=== PATIENT | male | born 1990 | race Caucasian/White ===

== ENCOUNTER 2018-05-03 10:31 | Emergency (ER) | payer OTHER ==
--- NOTE | 2018-05-03 11:10 | ED Physician Documentation ---
PD HPI HEADACHE - Stated complaint Stated Complaint: HEADACHE - Chief complaint Chief Complaint: Neuro - History obtained from History obtained from: Patient - History of Present Illness Timing - onset: How many weeks ago (6) Timing - onset during: Light activity Timing - details: Gradual onset, Still present (he has had focal pain behind left eye for 6 weeks to some degree, has not gone away. Mild blurred vision at times. No scotomata.), Waxing and waning Worst headache ever?: No: Worst headache ever? Location: Front (behind left eye), Left Quality: Throbbing, Aching Associated symptoms: Other (no nasal drainage). No: Fever, Nausea, Vomiting Worsened by: Light. No: Noise Contributing factors: No: Recent illness, Trauma Similar symptoms before: Has not had sx before Recently seen: Not recently seen Review of Systems Constitutional: denies: Fever, Chills, Myalgias Nose: denies: Rhinorrhea / runny nose, Congestion Throat: denies: Sore throat Respiratory: denies: Cough Skin: denies: Rash, Lesions PD PAST MEDICAL HISTORY - Past Medical History Cardiovascular: None Respiratory: None Neuro: None Endocrine/Autoimmune: None HEENT: None - Present Medications Home Medications: Ambulatory Orders Medication Instructions Recorded Confirmed Dexamethasone [Decadron] 4 mg PO DAILY #8 tablet 05/03/18 Naproxen 375 mg PO BID #20 tablet 05/03/18 Ondansetron HCl [Zofran] 4 mg PO Q6H PRN #20 tablet 05/03/18 Sumatriptan Succinate [Imitrex] 100 mg PO ONCE PRN #9 tablet 05/03/18 Tramadol HCl 50 mg PO Q6H PRN #20 tablet 05/03/18 PD ED PE NORMAL - Vitals Vital signs reviewed: Yes - General General: Alert and oriented X 3, No acute distress, Well developed/nourished - HEENT HEENT: PERRL, EOMI, Other (no sinus tenderness to percussion) - Neck Neck: Supple, no meningeal sign, No adenopathy - Cardiac Cardiac: RRR, No murmur - Respiratory Respiratory: Clear bilaterally - Derm Derm: Normal color, Warm and dry, No rash - Neuro Neuro: Alert and oriented X 3, 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 sinus okay as well. ) PD MEDICAL DECISION MAKING - ED course Complexity details: considered differential (given the long duration of focal pain, got CT and it appeared okay. ), d/w patient - Sepsis Event Vital Signs: Oxygen O2 Source Room air Departure - Departure Disposition: 01 Home, Self Care Clinical Impression: Frontal headache Migraines Qualifiers: Migraine type: unspecified Status migrainosus presence: with status migrainosus Intractability: not intractable Qualified Code(s): G43.901 - Migraine, unspecified, not intractable, with status migrainosus Condition: Stable Record reviewed to determine appropriate education?: Yes Instructions: ED Cephalgia Unspecified, ED Headache Migraine Follow-Up: MELISSA STARKEY MD [Primary Care Provider] - Prescriptions: Dexamethasone [Decadron] 4 mg PO DAILY #8 tablet Naproxen 375 mg PO BID #20 tablet Ondansetron HCl [Zofran] 4 mg PO Q6H PRN #20 tablet PRN Reason: Nausea / Vomiting Sumatriptan Succinate [Imitrex] 100 mg PO ONCE PRN #9 tablet PRN Reason: Headache Tramadol HCl 50 mg PO Q6H PRN #20 tablet PRN Reason: Pain Comments: Your head CT is normal without any signs of tumors bleeding or swelling. The sinuses appear normal to. So this may be still some sinus pressure in the area. Also consider MEHRAN status migraine even though the duration seems to be a bit long. This would get treated with steroids and anti-inflammatories and add Tylenol and/or tramadol if needed for pain. For subsequent migraine episodes you can use an Excedrin sinus or naproxen type medicine combined with ondansetron for nausea and Imitrex for the migraine and see if those help. Follow-up with your primary care if not improved over the next several days. Discharge Date/Time: 05/03/18 14:47
[2018-05-03] MEDS ORDERED: DEXAMETHASONE 10 MG/ML VIAL PO STA (11:31)
[2018-05-03] MEDS ORDERED: IBUPROFEN 600 MG TABLET PO STA (11:31)
[2018-05-03] MEDS ORDERED: CETIRIZINE 10 MG TABLET PO STA (11:31)
--- NOTE | 2018-05-03 12:57 | CT Report ---
Procedure Date: 05/03/2018 Accession Number: [id number] / [id number] Procedure: CT - Head W/O CPT Code: FULL RESULT: EXAM: CT HEAD EXAM DATE: 05/03/2018 12:13 PM. CLINICAL HISTORY: Left frontal headache for 6 weeks. COMPARISON: None. TECHNIQUE: Multiaxial CT images were obtained from the foramen magnum to the vertex. Reformats: Coronal. IV contrast: None. In accordance with CT protocol optimization, one or more of the following dose reduction techniques were utilized for this exam: automated exposure control, adjustment of mA and/or KV based on patient size, or use of iterative reconstructive technique. FINDINGS: Parenchyma: No intraparenchymal hemorrhage. No evidence of mass, midline shift, or CT findings of infarction. Sky-white differentiation is distinct. Extraaxial Spaces: Normal for age. No subdural or epidural collections identified. Ventricles: Normal in size and position. Sinuses and Orbits: Imaged paranasal sinuses, orbits, and mastoids show no significant abnormality. Bones: No evidence of fracture or calvarial defect. Other: None. IMPRESSION: 1. No acute intracranial abnormality is identified. RADIA
[2018-05-03 14:48] VITALS: BP 127/77
== END 2018-05-03 14:47 | disposition home or self-care (01) ==
LOC: ED 10:31
DX: G43.909 Migraine, unspecified, not intractable, without status migrainosus (principal)
CPT/HCPCS: 70450; 99283; A9270

== ENCOUNTER 2019-01-29 14:23 | Emergency (ER) | payer OTHER ==
[2019-01-29 14:30] VITALS: BP 146/85
[2019-01-29] MEDS ORDERED: KETOROLAC 60 MG/2 ML VIAL IM STA (14:50)
[2019-01-29] MEDS ORDERED: CETIRIZINE 10 MG TABLET PO STA (14:50)
[2019-01-29] MEDS ORDERED: PSEUDOEPHEDRINE 30 MG TABLET PO SCH (15:00)
--- NOTE | 2019-01-29 15:27 | ED Physician Documentation ---
PD HPI HEADACHE - Stated complaint Stated Complaint: LT SIDE FACE NUMBNESS - Chief complaint Chief Complaint: General - History obtained from History obtained from: Patient, Family - History of Present Illness Timing - onset: Last night Timing - onset during: Rest Timing - duration: Days (1) Timing - details: Gradual onset, Waxing and waning Pain level max: 8 Pain level now: 8 Worst headache ever?: No: Worst headache ever? Location: Front, Left Quality: Throbbing, Aching. No: Thunderclap Associated symptoms: Fever (States had sweats last night). No: Nausea, Vomiting, Weakness, Numbness, Syncope, Seizure, Eye pain, Vision changes Improved by: Other (Has not tried anything) Worsened by: Moving, Other (Palpation) Contributing factors: No: Anticoagulated, Possible carbon monoxide, Hypertension, Recent illness, Trauma Similar symptoms before: Diagnosis (Headache) Recently seen: Not recently seen - Additional information Additional information: Initially the patient stated that this started last night. Upon further questioning, he states that this is actually been ongoing for a year and gets frequent headaches. Has seen his primary care provider but states that no testing has been done. Did have a normal head CT here last year. Review of Systems Ten Systems: 10 systems reviewed and negative Constitutional: denies: Fever, Chills Nose: reports: Congestion, Sinus pressure / pain Throat: denies: Sore throat Cardiac: denies: Chest pain / pressure Respiratory: denies: Cough, Wheezing GI: denies: Abdominal Pain, Nausea, Vomiting, Diarrhea Skin: denies: Rash Musculoskeletal: denies: Neck pain, Back pain Neurologic: denies: Focal weakness, Numbness, Confused, Altered mental status, LOC PD PAST MEDICAL HISTORY - Past Medical History Cardiovascular: None Respiratory: None Neuro: None Endocrine/Autoimmune: None HEENT: None - Past Surgical History Past Surgical History: No - Present Medications Home Medications: Ambulatory Orders Medication Instructions Recorded Confirmed Naproxen 375 mg PO BID #20 tablet 05/03/18 01/29/19 Ondansetron HCl [Zofran] 4 mg PO Q6H PRN #20 tablet 05/03/18 01/29/19 Sumatriptan Succinate [Imitrex] 100 mg PO ONCE PRN #9 tablet 05/03/18 01/29/19 Butalb/Acetaminophen/Caffeine 1 cap PO Q8H PRN #20 capsule 01/29/19 [Fioricet 50-300-40 mg Capsule] - Allergies Allergies/Adverse Reactions: Allergies Allergy/AdvReac Type Severity Reaction Status Date / Time No Known Drug Allergies Allergy Verified 01/29/19 14:30 - Social History Does the pt smoke?: No Smoking Status: Never smoker Does the pt drink ETOH?: Yes Does the pt have substance abuse?: No - Immunizations Immunizations are current?: Yes - POLST Patient has POLST: No PD ED PE NORMAL - Vitals Vital signs reviewed: Yes - General General: Alert and oriented X 3, No acute distress, Well developed/nourished - HEENT HEENT: Atraumatic, PERRL, EOMI, Ears normal, Moist mucous membranes, Pharynx benign, Other (Tender to palpation over the left frontal sinus) - Neck Neck: Supple, no meningeal sign, No bony TTP - Cardiac Cardiac: RRR, No murmur, Strong equal pulses - Respiratory Respiratory: No respiratory distress, Clear bilaterally - Abdomen Abdomen: Soft, Non tender, Non distended - Derm Derm: Warm and dry, No rash - Extremities Extremities: No edema, No calf tenderness / cord - Neuro Neuro: Alert and oriented X 3, 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 Normal cerebellar test) Eye Opening: Spontaneous Motor: Obeys Commands Verbal: Oriented GCS Score: 15 - Psych Psych: Normal mood, Normal affect - Free text exam Free text exam: NIH stroke scale of 0 Results - Vitals Vitals: Vital Signs - 24 hr 01/29/19 14:25 Temperature 36.4 C L Heart Rate 70 Respiratory 16 Rate Blood Pressure 146/85 H O2 Saturation 100 Oxygen O2 Source Room air - Rads (name of study) Head CT Radiology: Prelim report reviewed, EMP read contemporaneously, See rad report (normal) PD MEDICAL DECISION MAKING - ED course Complexity details: reviewed old records, reviewed results, re-evaluated patient, considered differential, d/w patient, d/w family ED course: 29-year-old male presents to the emergency department with a left frontal headache. Has been having ongoing headaches for the past year. No acute findings on head CT. Will trial on Fioricet at home. Recommend he follow-up with his PCP for further evaluation including potential MRI and/or neurology referral. Patient counseled regarding signs and symptoms for which I believe and urgent re-evaluation would be necessary. Patient with good understanding of and agreement to plan and is comfortable going home at this time This document was made in part using voice recognition software. While efforts are made to proofread this document, sound alike and grammatical errors may occur. Departure - Departure Disposition: Home, Self Care Clinical Impression: Headache Qualifiers: Headache type: unspecified Headache chronicity pattern: chronic headache Intractability: not intractable Qualified Code(s): R51 - Headache Condition: Good Instructions: ED Cephalgia Unspecified Follow-Up: MELISSA STARKEY MD [Primary Care Provider] - Within 1 week Prescriptions: Butalb/Acetaminophen/Caffeine [Fioricet 50-300-40 mg Capsule] 1 cap PO Q8H PRN #20 capsule PRN Reason: Headache Comments: As you have had chronic ongoing headaches over the past year. You should follow-up with your doctor for further care. They may want to perform an MRI and/or refer you to a headache specialist. Discharge Date/Time: 01/29/19 16:37
--- NOTE | 2019-01-29 16:17 | CT Report ---
Reason: L frontal headache x 1 year Procedure Date: 01/29/2019 Accession Number: [id number] / [id number] Procedure: CT - HEAD WO CPT Code: FULL RESULT: EXAM: CT HEAD EXAM DATE: 01/29/2019 03:23 PM. CLINICAL HISTORY: L frontal headache x 1 year. COMPARISON: HEAD W/O 05/03/2018 12:12 PM. TECHNIQUE: Multiaxial CT images were obtained from the foramen magnum to the vertex. Reformats: Sagittal and coronal. IV contrast: None. In accordance with CT protocol optimization, one or more of the following dose reduction techniques were utilized for this exam: automated exposure control, adjustment of mA and/or KV based on patient size, or use of iterative reconstructive technique. FINDINGS: Parenchyma: No intraparenchymal hemorrhage. No evidence of mass, midline shift, or CT findings of infarction. Sky-white differentiation is distinct. Extraaxial Spaces: Normal for age. No subdural or epidural collections identified. Ventricles: Normal in size and position. Sinuses and Orbits: Imaged paranasal sinuses, orbits, and mastoids show no significant abnormality. Bones: No evidence of fracture or calvarial defect. Other: None. IMPRESSION: Normal head CT. RADIA
== END 2019-01-29 16:37 | disposition home or self-care (01) ==
LOC: ED 14:23
DX: R51 Headache (principal)
CPT/HCPCS: 70450; 96372; 99283; A9270

== ENCOUNTER 2019-12-08 12:02 | Outpatient (CLI) | payer OTHER ==
[2019-12-08] MEDS ORDERED: GADOBUTROL 10 MMOL/10 ML VIAL ONE (12:14)
[2019-12-08] MEDS ORDERED: GADOBUTROL 10 MMOL/10 ML VIAL IVP ONE (15:59)
--- NOTE | 2019-12-08 16:37 | MRI Report ---
Reason: MIGRAINE W/AURA, NOT INTRACTABLE, W/O MIGRAINOSUS Procedure Date: 12/08/2019 Accession Number: [id number] / [id number] Procedure: MRI - Angio Neck W/WO (MRA) CPT Code: Final Report FULL RESULT: EXAM: MR ANGIOGRAM NECK EXAM DATE: 12/08/2019 04:03 PM. CLINICAL HISTORY: 29-year-old with history of migraine resulting in intermittent left-sided weakness. He developed for vascular pathology. COMPARISON: MR brain 12/08/2019. TECHNIQUE: Multiplanar, multisequence MRA sequences of the neck were performed. Other: None. Post-processing: Multiplanar 3D MIP reconstructions. IV Contrast: 9 mL Gadavist. Evaluation of arterial stenosis is based on a NASCET method of measurement. FINDINGS: RIGHT Common Carotid: Patent. No dissection or significant stenosis. Internal Carotid: Patent. No dissection or significant stenosis. External Carotid: Patent. No dissection or significant stenosis. Vertebral: Patent. No dissection or significant stenosis. LEFT Common Carotid: Patent. No dissection or significant stenosis. Internal Carotid: Patent. No dissection or significant stenosis. External Carotid: Patent. No dissection or significant stenosis. Vertebral: Patent. No dissection or significant stenosis. Intracranial Circulation: No stenoses or aneurysms in the visualized portion of the intracranial vasculature. Other: The soft tissues, bones, and lung apices are unremarkable. IMPRESSION: 1. Normal neck MRA. No hemodynamically significant stenoses. RADIA
--- NOTE | 2019-12-08 16:44 | MRI Report ---
Reason: MIGRAINE W/AURA, NOT INTRACTABLE, W/O MIGRAINOSUS Procedure Date: 12/08/2019 Accession Number: [id number] / [id number] Procedure: MRI - Brain W/WO CPT Code: Final Report FULL RESULT: EXAM: MRI BRAIN WITHOUT AND WITH CONTRAST EXAM DATE: 12/08/2019 04:02 PM. CLINICAL HISTORY: 29-year-old with history of migraines with some migraines resulting in intermittent left-sided weakness. Evaluate for intracranial pathology. COMPARISON: MRA head 12/08/2019; MRA neck 12/08/2019. TECHNIQUE: Multiplanar, multisequence T1-weighted and fluid-sensitive MR sequences of the brain were performed before and after administration of intravenous contrast. Sequences optimized for routine evaluation. Other: None. IV Contrast: 9 cc Gadavist. FINDINGS: Brain Volume: Normal for age. Parenchyma: No acute parenchymal hemorrhage, mass or midline shift. There are a few scattered white matter changes seen including deep white matter of the left frontal lobe measuring up to 4 mm (series 701, image 22). No areas of restricted diffusion seen to suggest acute infarct. No abnormal enhancement. Ventricles/Cisterns: No hydrocephalus. No abnormal extra-axial fluid collection or hemorrhage. Orbits: Symmetric and unremarkable. Sella Turcica: The sella appears normal. There is a T2 hyperintense, T1 hypointense, nonenhancing lesion seen within the posterior left aspect of the pituitary measuring 5 x 9 x 8 mm (cc by TR by AP). No suprasellar mass or mass-effect on the overlying optic structures. IAC: Symmetric and unremarkable. Vasculature: Normal signal flow void is seen in the major arterial structures at the skull base. The dural sinuses are patent and enhance normally. Sinuses: Tiny right and small left maxillary mucosal retention cysts versus polyps. Mastoid air cells and middle ear cavities are clear. Bones: No focal pathologic appearing marrow signal changes. Other: None. IMPRESSION: 1. No definite acute intracranial pathology seen; specifically, no acute infarct, acute intracranial hemorrhage, mass, hydrocephalus or midline shift. No abnormal postcontrast enhancement. 2. There are a few scattered white matter changes seen predominantly involving the deep white matter of the left frontal lobe. Findings are nonspecific and potential etiologies include sequela of prior migraines. 3. There is a T2 hyperintense, T1 hypointense, nonenhancing lesion seen within the posterior left aspect of the pituitary measuring 5 x 9 x 8 mm (cc by TR by AP). No suprasellar mass or mass effect on the overlying optic structures. Finding may represent pituitary cyst or Rathke's cleft cyst. Possibility of cystic adenoma is considered less likely but not entirely excluded. RADIA
--- NOTE | 2019-12-08 16:47 | MRI Report ---
Reason: MIGRAINE W/AURA, NOT INTRACTABLE, W/O MIGRAINOSUS Procedure Date: 12/08/2019 Accession Number: [id number] / [id number] Procedure: MRI - Angio Brain W/O (MRA) CPT Code: Final Report FULL RESULT: EXAM: MR ANGIOGRAM HEAD WITHOUT CONTRAST. INDICATION: 29-year-old male. History of migraines. Had left-sided weakness associated with migraine headache last month. TECHNIQUE: 3D [id number] MR angiography. COMPARISON: None. FINDINGS: The internal carotid arteries appear widely patent bilaterally. Linear, central hypointensity in supraclinoid right ICA almost certainly relates to flow artifact. No ICA aneurysm is identified. The A1 segment of the left anterior cerebral artery is mildly hypoplastic with dominant right A1 segment. An anterior communicating artery is demonstrated. Good flow related enhancement is identified in the imaged YU branches. No aneurysms are identified in the imaged YU circulations. The middle cerebral arteries are unremarkable. No aneurysm is demonstrated and there is no evidence of occlusion or hemodynamically significant stenosis affecting main branches of either MCA. The right vertebral artery is hypoplastic but patent. Dominant left vertebral artery is widely patent. Both PICAs appear patent. No aneurysm is seen at either PICA origin. The basilar artery, superior cerebellar arteries and posterior cerebral arteries appear widely patent. There appears to be a tiny left posterior communicating artery. No definite right posterior communicator is seen. No aneurysms are demonstrated arising from the basilar artery trunk or apex. IMPRESSION: 1. Normal [facility] [place] MR angiogram. No evidence of occlusion or hemodynamically significant stenosis affecting main branches of the anterior posterior circulations. 2. On axial source images of the central, linear area of low signal within the supraclinoid right ICA almost certainly relates to flow artifact. There is normal intraluminal contrast enhancement of the intracranial ICAs on the patient's gadolinium-enhanced neck MRA performed at same time but dictated separately.
== END 2019-12-08 12:03 | disposition home or self-care (01) ==
LOC: DI 12:02
PROVIDERS: ATTEND Student in an Organized Health Care Education/Training Program
DX: E23.7 Disorder of pituitary gland, unspecified (principal); R90.82 White matter disease, unspecified; Z86.69 Personal history of other diseases of the nervous system and sense organs
CPT/HCPCS: 70549; 70553; A9585; 70544